=== PATIENT | female | born 1985 | race Caucasian/White ===

== ENCOUNTER 2017-07-21 12:55 | Day surgery (SDC) | payer MEDICAID ==
[~2017-07-21] VITALS: Ht 170.2 cm; Wt 68.2 kg
--- NOTE | ~2017-07-21 | OP ---
PATIENT NAME: KELLY THOMPSON MEDICAL RECORD: [id number] :86 [facility] ADMISSION DATE: SURGEON: RIZWANA MARCUS DO DATE OF OPERATION: 07/21/2017 PROCEDURE: EGD with biopsies. INDICATIONS FOR PROCEDURE: Anemia, epigastric abdominal pain, heartburn, nausea and vomiting, gastroparesis, weight loss. SCOPE: Olympus video gastroscope. MEDICATIONS: Propofol 150 mg IV per anesthesia. ESTIMATED BLOOD LOSS: Minimal. COMPLICATIONS: None. FINDINGS: Informed consent was given. The patient was made comfortable with the above medication. After reaching an adequate level of sedation by slow IV push, the patient was placed on her left side. The endoscope was then advanced under direct visualization through the mouth to the second portion of the duodenum. The upper, middle, and lower thirds of the esophagus appeared normal. Random cold forceps biopsies were taken from the midesophagus to rule out eosinophilic esophagitis. At the GE junction, there was very mild evidence of LA class A reflux induced esophagitis without ulcers or erosions. The endoscope was advanced into the stomach which was normal other than the appearance of retained fluid in a moderate amount in the fundus and body of the stomach. Retroflexion was performed to look at the cardia, which appeared normal. There were a few scattered benign-appearing fundic gland type gastric polyps located in the fundus and body of the stomach. The pylorus had some minimal stenosis and there was some bleeding after traversing that site with the endoscope into the duodenum. The duodenal bulb, first portion and second portion of the duodenum appeared normal. Random biopsies were taken in workup of anemia and diarrhea. The endoscope was then withdrawn back into the stomach and random gastric biopsies were taken to submit for histology and to rule out H. pylori. The endoscope was then completely withdrawn from the patient. The patient tolerated the procedure well and there were no complications. IMPRESSION: 1. LA class A reflux-induced esophagitis. 2. Gastritis and mild pyloric stenosis, possibly from previous gastritis and/or ulcerations which are healing. 3. Benign appearing fundic gland type gastric polyps in mild severity. PLAN AND RECOMMENDATIONS: 1. Discharge home when recovery parameters are met. 2. Continue GERD and gastroparesis diet with small frequent meals. 3. Reflux precautions. 4. Good glycemic control regarding the gastroparesis which could be from diabetes. 5. Continue current medications including Protonix 40 mg daily for 8 weeks. After that time, it can be considered switching to an H2 melvi if symptoms remain controlled. 6. Proceed with colonoscopy for stool collection, random biopsies, and other OPERATIVE REPORT [id number] KELLY THOMPSON workup as indicated. TRANSINT:[id number] Voice Confirmation ID: [id number] DOCUMENT ID: [id number] RIZWANA MARCUS DO at 1524 CC: [id number] DICTATION DATE: 07/21/17 1523 MOTEL FRONT DESK CLERK: 07/21/17 1706 [facility] 07/21/17 [address] [place] [address]
[2017-07-21] MEDS ORDERED: LIPITOR80 MG PO (13:57)
[2017-07-21] MEDS ORDERED: CALCIUM 500 + D1 TAB PO (13:58)
[2017-07-21] MEDS ORDERED: BUMEX2 MG PO (13:58)
[2017-07-21] MEDS ORDERED: COREG25 MG PO (13:58)
[2017-07-21] MEDS ORDERED: HYDRALAZINE HCL25 MG PO (14:00)
[2017-07-21] MEDS ORDERED: CATAPRES0.2 MG PO (14:00)
[2017-07-21] MEDS ORDERED: NOVOLOG100 U/M1 (14:01)
[2017-07-21] MEDS ORDERED: PEPCID40 MG PO (14:03)
[2017-07-21] MEDS ORDERED: TUMS500 MG PO (14:04)
[2017-07-21] MEDS ORDERED: SODIUM BICARBO650 MG PO (14:04)
[2017-07-21 14:05] LABS: HEMATOCRIT 32.4 % (36.0-48.0); HEMOGLOBIN 10.5 g/dL (12-16); MCH 29.8 pg (26.0-34.0); MCHC 32.4 g/dL (31.0-37.0); MEAN PLATELET VOLUME 9.1 fL (7.4-10.4); RBC 3.52 10x6/uL (4.00-5.40); RDW 13.4 % (11.5-14.5); WBC 4.6 10x3/uL (4.8-10.8)
[2017-07-21] MEDS ORDERED: EFFEXOR75 MG PO (14:05)
[2017-07-21] MEDS ORDERED: XANAX1 MG PO (14:05)
[2017-07-21] MEDS ORDERED: VALIUM5 MG PO (14:05)
[2017-07-21 14:15] VITALS: Ht 170.2 cm; Wt 68.2 kg
[2017-07-21] MEDS ORDERED: PROCRIT/EP40000 UNIT SQ (14:18)
[2017-07-21 14:29] LABS: ANION GAP 14.1 mmol/L (8-16); CALCIUM 8.2 mg/dL (8.5-10.1); CARBON DIOXIDE 22.5 mmol/L (21.0-32.0); CREATININE - SERUM 2.3 mg/dL (0.6-1.3); POTASSIUM - SERUM 4.6 mmol/L (3.5-5.1)
[2017-07-21 15:04] LABS: HCG URINE NEGATIVE (NEGATIVE)
== END 2017-07-21 16:23 | disposition home or self-care (01) ==
LOC: D.OPS 12:55
PROVIDERS: Anesthesiology; Internal Medicine Gastroenterology
DX: D64.9 Anemia, unspecified (principal); R10.13 Epigastric pain; R11.2 Nausea with vomiting, unspecified; E11.43 Type 2 diabetes mellitus with diabetic autonomic (poly)neuropathy; K31.84 Gastroparesis; K31.1 Adult hypertrophic pyloric stenosis; K31.7 Polyp of stomach and duodenum; E11.22 Type 2 diabetes mellitus with diabetic chronic kidney disease; I12.9 Hypertensive chronic kidney disease with stage 1 through stage 4 chronic kidney disease, or unspecified chronic kidney disease; N18.4 Chronic kidney disease, stage 4 (severe); Z01.812 Encounter for preprocedural laboratory examination

== ENCOUNTER 2018-03-17 05:40 | Day surgery (SDC) | payer MEDICAID ==
[2018-03-16 14:55] LABS: BASOPHILS 0.9 % (0-2); EOSINOPHILS 8.8 % (0-7); HEMATOCRIT 31.1 % (36.0-48.0); IMMATURE GRANULOCYTES 0.2 % (0-5); LYMPHOCYTES 21.8 % (15-50); MCH 30.1 pg (26.0-34.0); MCHC 32.2 g/dL (31.0-37.0); MCV 93.7 fL (80.0-100.0); MEAN PLATELET VOLUME 8.9 fL (7.4-10.4); MONOCYTES 8.8 % (2-11); NEUTROPHILS 59.5 % (40-80); PLATELET COUNT 250 10x3/uL (130-400); RBC 3.32 10x6/uL (4.00-5.40); RDW 14.5 % (11.5-14.5); WBC 4.5 10x3/uL (4.8-10.8)
[2018-03-16 15:02] LABS: INR 0.96 (0.85-1.17); PROTIME 12.3 SECONDS (11.6-15.0)
[2018-03-16 15:03] LABS: APTT 29.2 SECONDS (22.8-39.4)
[2018-03-16 15:05] LABS: ANION GAP 15.7 mmol/L (8-16); CALCIUM 7.7 mg/dL (8.5-10.1); CARBON DIOXIDE 18.2 mmol/L (21.0-32.0); CREATININE - SERUM 4.1 mg/dL (0.6-1.3); POTASSIUM - SERUM 4.9 mmol/L (3.5-5.1)
[~2018-03-17] VITALS: Ht 170.2 cm; Wt 78.5 kg
--- NOTE | ~2018-03-17 | OP ---
PATIENT NAME: KELLY PAINTER MEDICAL RECORD: [id number] :86 [facility] DATE: SURGEON: UNIQUE MAGANA MD DATE OF OPERATION: 03/17/2018 PREOPERATIVE DIAGNOSES: Chronic kidney disease IV; diabetes mellitus type 1, insulin-dependent with insulin pump. POSTOPERATIVE DIAGNOSES: Chronic kidney disease IV; diabetes mellitus type 1, insulin-dependent with insulin pump. OPERATION PERFORMED: Laparoscopy and insertion of peritoneal dialysis catheter. SURGEON: Unique Magana MD ANESTHESIA: General endotracheal per QUILL REAMER. REFERRING PHYSICIAN: Cullen Garcia MD PREOPERATIVE NOTE: Ms. Painter is a 32-year-old white female patient from [place]. She is a patient of Dr. Yunier Harding and Dr. Cullen Garcia. She has diabetes, is on an insulin pump and has chronic renal insufficiency and is now to begin peritoneal dialysis within the next few weeks. She is brought to the operating room to place a catheter. She does not have hemodialysis access at this time. DESCRIPTION OF PROCEDURE: Under general endotracheal anesthesia, the patient was placed in supine position and prepped and draped in a sterile manner. Her insulin pump was removed of course prior to prep. I entered the abdomen with a 5-mm port through a small incision in the left upper quadrant with Optiview XL technique with a 5-mm 0-degree laparoscope in place. Pneumoperitoneum was established with carbon dioxide. Examination of the abdomen revealed no evidence of adhesions or inflammatory processes and she seemed quite suitable for a right-sided catheter. I had identified a site for the catheter exit to be made when I examined her in the preop holding area. That site still appeared to be appropriate. I then used the swan-neck dual-cuff coil catheter to measure upwards from the symphysis pubis and find a point at which we anticipate the deeper of the 2 Dacron felt cuffs entering the rectus sheath. I made a vertical incision there just beneath the level of the umbilicus into the right and with electrocautery exposed the anterior rectus sheath. I then placed a needle into the rectus at a predetermined point and under laparoscopy watched as I advanced the needle inferiorly and a preperitoneal tunnel before entering the peritoneum. A guidewire was inserted and the needle removed and I noted the patient to be having some bleeding at that point and a preperitoneal rectus sheath hematoma began to develop. I took the dual-cuff catheter and soaked it in saline, evacuated the air bubbles from the Dacron felt cuffs and gave the outer surface of the catheter a scrub with a sponge and saline solution. The coiled end of the catheter was then inserted through the peel-away sheath and the peel-away sheath removed. The deeper Dacron felt cuff was placed in the rectus sheath just below the anterior sheath and a pursestring suture of 0 Vicryl was applied. This appeared to control bleeding outwardly and laparoscopically the hematoma did not expand. The catheter in the right lower quadrant was difficult to position without an instrument and so I placed another 5-mm port in the left lower quadrant and placed the coiled catheter into the pelvis posterior to the uterus. The catheter was then pulled through a subcutaneous tunnel to the OPERATIVE REPORT [id number] KELLY PAINTER A predetermined exit site. The catheter was then flushed with saline and noted to irrigate freely. A 250 cc of saline were then instilled and allowed then to run out by siphoning excising and the catheter functioned well. The catheter was subsequently heparin-locked, clamped and capped and the exit site sealed with glue and a Biopatch applied around the catheter at the exit site. The laparoscopic ports were removed and hemostasis obtained within the port sites and in the rectus sheath by injecting 0.25% Marcaine with epinephrine. A 0.25% Marcaine without epinephrine was injected into subcutaneous tissue and the wounds were closed with interrupted 3-0 Vicryl. The longer incision was closed with a running 4-0 Monocryl. All were sealed with glue and dressed with Maxorb Ag, Tegaderm, and Cavilon skin prep. The peritoneal catheter exit site was covered with Tegaderm. The catheter was coiled and then covered with a Primapore dressing. At that point, she was awakened and stable condition taken to the recovery room. Blood loss during the operation was about 20 cc, this was unreplaced. The patient was given 20 mcg of DDAVP at the earlier or beginning of the operation when she began to have some oozing and bleeding along the catheter insertion tract. This DDAVP appeared to work quite well. No specimen was submitted for histopathology. Sponges, instruments, and needles were accounted for. PLAN: The patient will be able to go home today assuming she is comfortable and has no signs of any significant bleeding ongoing. She is advised to use an ice pack off and on to the right lower quadrant and she is given an abdominal binder to wear p.r.n. for comfort. I will have her come back to see me in my office on Friday of next week and hopefully she will be able to see the peritoneal dialysis [facility] nurses within the next couple of days. She is to leave the original operative dressings intact until that time. I have given her my personal cell number so that she can call if she has any problems between now and her followup appointments. She is given a prescription for Meriden 5/325, she can take 1-2 p.o. every 4 hours p.r.n. for pain. TRANSINT:[id number] Voice Confirmation ID: [id number] DOCUMENT ID: [id number] UNIQUE MAGANA MD at 1150 CC: [id number] DICTATION DATE: 03/17/18921 DESULFURIZER MACHINE: 03/17/18 1028 [facility] 03/17/18 [address] [place] [address]
[~2018-03-17 05:40] MED LIST: BUMEX2 MG PO; CALCIUM 500 + D1 TAB PO; CATAPRES0.2 MG PO; COREG25 MG PO; EFFEXOR75 MG PO; HYDRALAZINE HCL25 MG PO; LIPITOR80 MG PO; NOVOLOG100 U/M1; PEPCID40 MG PO; PROCRIT/EP40000 UNIT SQ; SODIUM BICARBO650 MG PO; TUMS500 MG PO; VALIUM5 MG PO; XANAX1 MG PO
[2018-03-17] MEDS ORDERED: NOVOLOG100 UNIT/1 SQ (06:45)
[2018-03-17 06:51] VITALS: BP 196/113; Ht 170.2 cm; Wt 78.5 kg
[2018-03-17 07:23] LABS: HCG URINE NEGATIVE (NEGATIVE)
== END 2018-03-17 15:20 | disposition home or self-care (01) ==
LOC: D.OPS 05:40
PROVIDERS: Internal Medicine Nephrology
DX: E10.22 Type 1 diabetes mellitus with diabetic chronic kidney disease (principal); N18.4 Chronic kidney disease, stage 4 (severe); Z99.2 Dependence on renal dialysis; Z79.4 Long term (current) use of insulin; Z01.812 Encounter for preprocedural laboratory examination

== ENCOUNTER 2018-05-19 10:40 | Day surgery (SDC) | payer MEDICAID ==
[~2018-05-19] VITALS: Ht 170.2 cm; Wt 68.0 kg
[~2018-05-19 10:40] MED LIST changes: +NOVOLOG100 UNIT/1 SQ
[2018-05-19] MEDS ORDERED: LISINOPRIL20 MG PO (12:51)
[2018-05-19] MEDS ORDERED: BUMEX2 MG PO (12:51)
[2018-05-19] MEDS ORDERED: METOLAZONE2.5 MG PO ×2 (12:52)
[2018-05-19] MEDS ORDERED: REGLAN5 MG PO (12:53)
[2018-05-19] MEDS ORDERED: FERRIC CITRATE210 MG PO (12:53)
[2018-05-19 13:31] VITALS: BP 151/97; Ht 170.2 cm; Wt 68.0 kg
[2018-05-19 13:56] LABS: HCG URINE NEGATIVE (NEGATIVE)
[2018-05-19 15:33] LABS: BASOPHILS 0.7 % (0-2); EOSINOPHILS 7.9 % (0-7); HEMATOCRIT 28.8 % (36.0-48.0); HEMOGLOBIN 9.4 g/dL (12-16); IMMATURE GRANULOCYTES 0.2 % (0-5); LYMPHOCYTES 21.5 % (15-50); MCHC 32.6 g/dL (31.0-37.0); MEAN PLATELET VOLUME 9.4 fL (7.4-10.4); MONOCYTES 8.3 % (2-11); NEUTROPHILS 61.4 % (40-80); PLATELET COUNT 286 10x3/uL (130-400); RBC 3.13 10x6/uL (4.00-5.40); WBC 5.7 10x3/uL (4.8-10.8)
[2018-05-19 15:41] LABS: ANION GAP 16.3 mmol/L (8-16); APTT 32.9 SECONDS (22.8-39.4); CALCIUM 8.5 mg/dL (8.5-10.1); CARBON DIOXIDE 24.8 mmol/L (21.0-32.0); CREATININE - SERUM 5.5 mg/dL (0.6-1.3); INR 1.05 (0.85-1.17); PROTIME 13.2 SECONDS (11.6-15.0)
[2018-05-19 15:42] LABS: POTASSIUM - SERUM 6.1 mmol/L (3.5-5.1)
--- NOTE | 2018-05-19 16:29 | NUR ---
CALLED HARI CALHOUN [facility]N [facility] CRITICAL HIGH POTASSIUM 6.1. PAN CALHOUN STATES TO GIVE 1 AMP CALCIUM GLUCONATE, 1 AMP D50, 10 UNITS INSULIN.
[2018-05-19 18:51] LABS: CALCIUM 8.1 mg/dL (8.5-10.1); CREATININE - SERUM 5.3 mg/dL (0.6-1.3)
[2018-05-19 18:52] LABS: ANION GAP 19.5 mmol/L (8-16); CARBON DIOXIDE 18.3 mmol/L (21.0-32.0); POTASSIUM - SERUM 4.8 mmol/L (3.5-5.1)
--- NOTE | 2018-05-19 20:00 | NUR ---
POST OP PT RECIEVED VIA HOSPITAL BED WITH FAMILY AND ARVIND ANDERSON FROM PACU A&O BP 185/106 ALL OTHER VS WNL PT C/O OF BURNING IN EFFECTED AREA
--- NOTE | 2018-05-19 20:10 | NUR ---
BUPRENEX .01MG IM LEFT VL GIVEN BY ARVIND ANDERSON FROM PACU
--- NOTE | 2018-05-19 22:00 | NUR ---
PER PT SHE WAS ADVISED SHE COULD GO HOME AFTER A HR , CALL Bharathi GRANADOS HE STATED TO CALLED NEPHROLOGY (KLARISSA CALHOUN ) SHE ORDER CLONIDINE 0.2MG PO IF SBP IN LESS THAN 180 PT CAN BE DISCHARGED
--- NOTE | 2018-05-19 22:05 | NUR ---
ANES AT BEDSIDE. 10MG LABATALOL NOW ORDERED AND GIVEN AT 2000
[2018-05-19 23:09] LABS: HCG URINE NEGATIVE (NEGATIVE)
== END 2018-05-20 00:53 | disposition home or self-care (01) ==
LOC: D.OPS 10:40 → D.M2 20:54 → D.OPS 05-20 00:53
PROVIDERS: Anesthesiology; Internal Medicine Nephrology
DX: T85.71XA Infection and inflammatory reaction due to peritoneal dialysis catheter, initial encounter (principal); Y83.8 Other surgical procedures as the cause of abnormal reaction of the patient, or of later complication, without mention of misadventure at the time of the procedure; E11.22 Type 2 diabetes mellitus with diabetic chronic kidney disease; N18.6 End stage renal disease

== ENCOUNTER → 2018-11-20 06:20 | Day surgery (SDC) | payer MEDICAID ==
[2018-11-19 11:40] LABS: BASOPHILS 0.6 % (0-2); EOSINOPHILS 17.9 % (0-7); HEMATOCRIT 30.9 % (36.0-48.0); IMMATURE GRANULOCYTES 0.1 % (0-5); MCH 27.1 pg (26.0-34.0); MCHC 32.4 g/dL (31.0-37.0); MCV 83.7 fL (80.0-100.0); MONOCYTES 4.1 % (2-11); NEUTROPHILS 64.3 % (40-80); PLATELET COUNT 272 10x3/uL (130-400); RBC 3.69 10x6/uL (4.00-5.40); RDW 16.4 % (11.5-14.5); WBC 7.1 10x3/uL (4.8-10.8)
[2018-11-19 11:45] LABS: ANION GAP 15.6 mmol/L (8-16); CALCIUM 8.4 mg/dL (8.5-10.1); CARBON DIOXIDE 22.1 mmol/L (21.0-32.0); POTASSIUM - SERUM 4.7 mmol/L (3.5-5.1)
[2018-11-19 12:13] LABS: INR 0.96 (0.85-1.17); PROTIME 12.3 SECONDS (11.6-15.0)
[~2018-11-20] VITALS: Ht 170.2 cm; Wt 74.8 kg
[~2018-11-20 06:20] MED LIST changes: +EPOGEN20000 U/ML SC; +FERRIC CITRATE210 MG PO; +HYDROCODON-ACE1 EAC7 PO; +LEVOTHYROXINE50 MCG PO; +LIPITOR10 MG PO; +LISINOPRIL20 MG PO; +METOLAZONE2.5 MG PO; +MUPIROCIN22 GM TOPICAL; +NORVASC10 MG PO; +REGLAN5 MG PO; +VANCOMYCIN 1 GM/1 G1 IV
--- NOTE | 2018-11-20 07:22 | NUR ---
0720 BS 134. PT TURNED OFF INSULIN PUMP AND DISCONNECTED UNIT FROM BODY. SHE RECHECKED THE BS ON HER MACHINE WHICH SHOWED 157.
[2018-11-20 07:40] VITALS: BP 149/92; Ht 170.2 cm; Wt 74.8 kg
[2018-11-20 08:01] LABS: HCG URINE NEGATIVE (NEGATIVE)
--- NOTE | 2018-11-20 16:07 | NUR ---
1430 JUSTIN FROM CASE MANAGMENT AT BEDSIDE. CONTACTED DIALYSIS PEOPLE. SCHEDULED FOR TENTATIVE PD FLUSH ON 11/23 AT 1030. MAYUR BASS RETURNED TO PT
--- NOTE | 2018-11-20 19:50 | NUR ---
GARLAND MACHINE OPERATOR BRINGS WOUND VAC FOR HOME USE TO DEPARTMENT. HOSPITAL WOUND VAC REMOVED AND IMMEDIATELY HOME WOUND VAC HOOKED UP. SUCTION CONFIRMED. 1999 PATIENT DISCHARGED HOME VIA WHEELCHAIR TO PRIVATE VEHICLE WITH MOTHER
--- NOTE | 2018-12-01 10:49 | OP ---
PATIENT NAME: KELLY PAINTER MEDICAL RECORD: [id number] :86 LOCATION:[facility] ADMISSION DATE: SURGEON: UNIQUE MAGANA MD DATE OF OPERATION: 11/20/2018 REFERRING PHYSICIAN: Cullen Aguilar MD PREOPERATIVE DIAGNOSES: Peritoneal catheter tunnel infection with recent episode severe peritonitis caused by methicillin-resistant Staphylococcus. OPERATION PERFORMED: Laparoscopic implantation of a new left-sided peritoneal dialysis catheter with exit site in the left upper quadrant and removal of old peritoneal dialysis catheter from the right lower quadrant with application of a wound VAC and also ultrasound-guided insertion of a HemoSplit tunneled dialysis catheter via the right internal jugular vein. SURGEON: Unique Magana MD ANESTHESIA: General endotracheal per GRIEVANCE MANAGER. PREOPERATIVE NOTE: Ms. Painter is a 32-year-old white female, insulin-dependent diabetic with end-stage renal disease, has been dialyzing now for a while with peritoneal dialysis catheter inserted in the right lower quadrant. She has had a problem with a chronic tunnel infection and recently developed MRSA peritonitis. She still has purulent drainage from the catheter exit site and a palpable mass around the subcutaneous portions of the catheter and her abdomen is now soft and nontender, without masses, organomegaly, etc. I have recommended that she have this chronically infected catheter removed and a new one implanted and that we use a HemoSplit hemodialysis catheter for the next few weeks, 2-3 weeks, to allow some time for the new catheter to heal and seal. DESCRIPTION OF PROCEDURE: Under general endotracheal anesthesia, the patient was placed in supine position, prepped and draped in a sterile manner. She had a vijay stud implanted or impaled in the skin just beneath the right and also the left clavicle heads. I removed the jewel from the skin on the right side. This was placed in a specimen cup and will be returned to the patient postoperatively. I will advise her not to replace this. I would advise her also to have the other side jewel removed. Ultrasound was used to locate and image the right internal jugular vein. It was noted to be fully compressible with normal contour and no evidence of scarring or previous access. Ultrasound images were recorded digitally. An incision was made at the base of the neck and with continuous ultrasound imaging, a micropuncture needle and guidewire were inserted into the internal jugular vein. A blood sample was then drawn from the micropuncture catheter in order to test her blood sugar by anesthesia. Catheter and wire exchanges were done and then dilators passed under fluoroscopy and finally a dilator peel-away sheath was inserted. I chose a 19-cm HemoSplit. It was brought through a small skin incision beneath the clavicle and a subcutaneous tunnel up to the cervical wound. The catheter was then inserted through the peel-away sheath and the sheath removed. The Dacron felt cuff was in the subcutaneous tunnel about midway between the entry site and the cervical incision. Under fluoroscopy, the tip of the catheter was positioned well in the upper inferior vena cava or lower right atrium. During the procedure, I had parked the guidewire in the inferior vena cava. OPERATIVE REPORT [id number] KELLY PAINTER The cervical incision was closed with interrupted inverted 3-0 Vicryl and Dermabond glue and dressed with Maxorb Ag, Tegaderm, and Cavilon skin prep. A chlorhexidine BioPatch was placed around the catheter at the entry site and a standard CVL dressing applied. The catheter was sutured to the skin with 2-0 Prolene. The patient was then completely reprepped and redraped in order to be certain that the HemoSplit catheter is totally isolated from the infected peritoneal catheter and as much is possible that her new laparoscopically inserted catheter is isolated from the existing right lower quadrant chronically infected catheter. The abdomen was entered with a 5 mm 0-degree laparoscope inserted through an XL Optiview type port through a small incision in the left upper quadrant. Pneumoperitoneum was established with carbon dioxide. One additional 5-mm port was required and this was placed through a small incision in the left lower quadrant. The patient's old catheter was seen to be in good position in the pelvis. There was a small amount of residual peritoneal dialysis fluid present. Using the Merit Stencil, I identified a site for the deeper Dacron felt cuff to be placed just within the rectus sheath beneath the anterior rectus fascia. An introducer was inserted and under laparoscopic guidance advanced preperitoneally well down the anterior abdominal wall before entering the peritoneal space. The classic Flex-Neck catheter was flushed with saline and air expelled from the 2 Dacron felt cuffs and it was then placed into the abdomen through the peel-away sheath. It was positioned in the pelvis posterior to the uterus. The old tube was then pulled out from behind the uterus with the grasper and there was no sign of infection or inflammatory change or significant adhesions to that catheter. The anterior rectus sheath was sutured with a pursestring 0 Vicryl suture, tied snugly then around the catheter and the catheter was flushed with saline to be certain that the pursestring was not tied excessively tightly and it was not. The catheter was then pulled through a subcutaneous tunnel to a previously identified exit site in the left upper quadrant. The exit site was very snug around the catheter because I used the Felix trocar. The catheter was then attached to a liter bag of saline, which ran into the peritoneal space easily and then the bag was placed on the floor and the fluid rapidly flowed back out of the abdomen completely. The catheter was then connected to a transfer device and then heparin locked with 100 unit per cc heparin and clamped and a sterile cap applied. The ports were removed and the wounds infiltrated with 0.25% Marcaine and closed with interrupted inverted 3-0 Vicryl and Dermabond glue and dressed with Maxorb Ag, Tegaderm, and Cavilon skin prep. The transverse incision just beneath and to the left of the umbilicus was infiltrated with Marcaine and closed with interrupted inverted 3-0 Vicryl and then a running intracuticular 4-0 Stratafix. That incision also was closed with Dermabond glue and dressed with Maxorb AG and Tegaderm with Cavilon skin prep and Tegaderm. The peritoneal catheter was dressed first with a chlorhexidine Biopatch at the skin level and that was then covered with a Tegaderm and then the catheter was coiled and over that placed a 4 x 4 Medipore dressing leaving the transfer set external so that the catheter could be flushed without having to disturb the dressing. That portion of the field was then isolated with towels from the right side. I made an incision through the old scar vertically and exposed the tube of scar OPERATIVE REPORT [id number] KELLY PAINTER and fibrous tissue surrounding the catheter. This was quite dense and large. I dissected it from the surrounding subcutaneous tissues down to the rectus and also I dissected the catheter from the subcutaneous tissues up to the skin exit site. I removed a divot of skin as well and then with simple traction, was able to remove the fully intact catheter with 2 Dacron felt cuffs. The deep cuff appeared slimy and certainly consistent with a chronic deep cuff catheter and tunnel infection. The wound was irrigated and then dressed with a wound VAC using a single bartholomew sponge. The skin wound was closed obliquely with a running 4-0 Prolene and dressed with Maxorb Ag, covered with the plastic dressing then for the wound VAC. The wound VAC was attached to a pump at a negative 125 mmHg vacuum and when activated the seal was excellent and there was no leak. The patient was then awakened and taken to the recovery room in stable condition. Note, it was not necessary to perform omentopexy on this patient and I saw no hernias or other abnormality in the abdomen, which needed intervention. I plan for the patient to be discharged to home today with home health referral for wound care and 3 times a week wound VAC dressing changes. She will be coming back to see me in my office week after next. Arrangements will be made for her to start hemodialysis next week and for her to have her new peritoneal dialysis catheter flushed next week. I will ask that she be continued on vancomycin at dialysis for an additional week. We will wait at least 2 weeks before attempting to use the catheter and start reduced volume exchanges. TRANSINT:[id number] Voice Confirmation ID: [id number] DOCUMENT ID: [id number] cc: [facility]. UNIQUE MAGANA MD at 1049 CC: CULLEN AGUILAR [id number] DICTATION DATE: 11/20/18 1216 LEAK GANG SUPERVISOR: 11/20/18 1251 [facility] 11/20/18 [facility] [address] [place] [address]
== END | disposition home or self-care (01) ==
LOC: D.OPS 06:20 → D.PAN 08:00 → D.OPS 08:00
PROVIDERS: Surgery; ATTEND Internal Medicine Nephrology
DX: T85.71XA Infection and inflammatory reaction due to peritoneal dialysis catheter, initial encounter (principal); Y83.9 Surgical procedure, unspecified as the cause of abnormal reaction of the patient, or of later complication, without mention of misadventure at the time of the procedure

== ENCOUNTER 2018-11-21 13:46 | Emergency (ER) | payer MEDICAID ==
[~2018-11-21] VITALS: Ht 170.2 cm; Wt 77.8 kg
[2018-11-21 13:53] VITALS: BP 136/74; Ht 170.2 cm; Wt 77.8 kg
[2018-11-21 15:30] LABS: BASOPHILS 0.5 % (0-2); EOSINOPHILS 10.3 % (0-7); HEMATOCRIT 28.8 % (36.0-48.0); HEMOGLOBIN 8.9 g/dL (12-16); IMMATURE GRANULOCYTES 0.2 % (0-5); LYMPHOCYTES 9.6 % (15-50); MCHC 30.9 g/dL (31.0-37.0); MCV 87.3 fL (80.0-100.0); MEAN PLATELET VOLUME 9.5 fL (7.4-10.4); MONOCYTES 5.4 % (2-11); RDW 17.1 % (11.5-14.5); WBC 10.3 10x3/uL (4.8-10.8)
[2018-11-21 15:33] LABS: PLATELET COUNT 393 10x3/uL (130-400)
[2018-11-21 15:43] LABS: ALBUMIN 2.6 g/dL (3.4-5.0); ANION GAP 18.1 mmol/L (8-16); BILIRUBIN - TOTAL 0.23 mg/dL (0.2-1.3); CALCIUM 7.7 mg/dL (8.5-10.1); CARBON DIOXIDE 20.1 mmol/L (21.0-32.0); CREATININE - SERUM 6.6 mg/dL (0.6-1.3); POTASSIUM - SERUM 5.2 mmol/L (3.5-5.1); PROTEIN - SERUM 5.7 g/dL (6.4-8.2)
== END 2018-11-21 18:30 | disposition home or self-care (01) ==
LOC: D.ER 13:46
PROVIDERS: Family Medicine
DX: R50.9 Fever, unspecified (principal); I12.9 Hypertensive chronic kidney disease with stage 1 through stage 4 chronic kidney disease, or unspecified chronic kidney disease; N18.9 Chronic kidney disease, unspecified

== ENCOUNTER → 2018-11-25 09:25 | Outpatient (CLI) | payer MEDICAID ==
[2018-11-21 13:53] VITALS: BMI 26.8
== END | disposition home or self-care (01) ==
LOC: D.LABREF 09:25
PROVIDERS: ATTEND Internal Medicine Nephrology
DX: N18.6 End stage renal disease (principal); Z79.2 Long term (current) use of antibiotics

== ENCOUNTER 2018-12-04 08:00 | Outpatient (CLI) | payer MEDICAID ==
[2018-11-21 13:53] VITALS: BMI 26.8
== END 2018-12-04 10:00 | disposition home or self-care (01) ==
LOC: D.MAMMO 08:00
PROVIDERS: ATTEND Student in an Organized Health Care Education/Training Program
DX: N63.11 Unspecified lump in the right breast, upper outer quadrant (principal)

== ENCOUNTER → 2018-12-21 07:27 | Outpatient (CLI) | payer MEDICAID ==
[2018-11-21 13:53] VITALS: BMI 26.8
== END | disposition home or self-care (01) ==
LOC: D.US 12-14 13:00
PROVIDERS: ATTEND Student in an Organized Health Care Education/Training Program
DX: N63.0 Unspecified lump in unspecified breast (principal)

== ENCOUNTER → 2019-12-06 11:33 | Outpatient (CLI) | payer MEDICAID ==
[2018-11-21 13:53] VITALS: BMI 26.8
--- NOTE | 2019-12-08 07:58 | EC ---
PATIENT:KELLY THOMPSON DATE OF SERVICE: 12/06/19 SEX: F MEDICAL RECORD: [id number] DATE OF : 87 LOCATION:[facility] AGE OF PATIENT: 33 ADMISSION DATE: 12/06/19 REFERRING PHYSICIAN: INTERPRETING PHYSICIAN: MARÍA ELENA BRUCE MD ECHOCARDIOGRAM REPORT ECHO CHARGES 4 ECHO COMPLETE Date: 12/06/19 CLINICAL DIAGNOSIS: CHEST PAIN ECHOCARDIOGRAPHIC MEASUREMENTS (adult normal given) AC root (d.<3.7cm) 3.0 cm LV Septum d (<1.2 cm> 1.5 cm Valve Excursion 1.4 cm LV Septum (systole) 1.7 cm Left Atria (s.<4.0cm> 3.2 cm LVPW d(<1.2cm) 1.5 cm RV (d.<2.3cm) 4.2 cm LVPW (sytole) 1.9 cm LV diastole(<5.6CM) 4.6 cm MV E-F(>70mm/sec) cm LV systole 3.2 cm LVOT Diameter 1.5 cm MV exc.(>10mm) 1.7 cm Est.ejection fraction (50-75%) % DOPPLER: LVIT cm/sec A 63.0 cm/sec E 113.0 cm/sec LA cm/sec RVSP 47 mmHg LVOT 120 cm/sec AOP1/2T m/s Asc. Ao 169 cm/sec RVOT 66 cm/sec RA cm/sec PA 111 cm/sec AV Gradient Peak 11.43mmHg AV Mean 6.35 mmHg AV Area 2.5 cm MV Gradient Peak 8.07 mmHg MV Mean 2.55 mmHg MV Area cm COMMENTS: Master Data Analyst: 2 SEAN ONOFRE Electrician Shop: 3 Dr. Ferreira TAPE# PACS Pericardial Effusion N DATE OF SERVICE: Adequate 2D, color flow imaging, spectral Doppler, and M-Mode. LVH is present. LV internal dimension is normal. Wall motion is normal. EF is greater than or equal to 55%. Aortic valve is tricuspid. No evidence of stenosis by Doppler interrogation. Left atrium is normal. Mitral valve shows no prolapse. Mild MR. Right side grossly normal. Mild TR. TRANSINT:[id number] Voice Confirmation ID: [id number] DOCUMENT ID: [id number] ECHOCARDIOGRAM REPORT [id number] KELLY THOMPSON MARÍA ELENA BRUCE MD at 0758 CC: [id number] DICTATION DATE: 12/07/19 1550 SUSTAINABILITY PROJECT MANAGER: 12/07/19 2144 [facility] 12/06/19 [address] [place] [address]
== END | disposition home or self-care (01) ==
LOC: D.HCCECHO 11:30
PROVIDERS: ATTEND Internal Medicine Interventional Cardiology
DX: R07.9 Chest pain, unspecified (principal)